=== PATIENT | male | born 1940 | race Caucasian/White ===

== ENCOUNTER 2016-08-07 21:46 | Emergency (ER) | payer OTHER, MEDICARE ==
[~2016-08-07] VITALS: Ht 162.6 cm; Wt 88.5 kg
[~2016-08-07 21:46] MED LIST: AMLO10TA88 PO; DOCU-144 PO; DOXA4TAB2 PO; HYDR-4100 PO; NOR10 PO; OMEG300C3 PO; VIT-10 PO
[2016-08-07 22:01] VITALS: BP_SYST 148
[2016-08-07] MEDS ORDERED: LORA10TA7 PO (23:00)
[2016-08-07] MEDS ORDERED: DOXA4TAB2 PO (23:00)
[2016-08-07] MEDS ORDERED: ASPI-1063 PO (23:00)
[2016-08-07] MEDS ORDERED: BENA10TA2 PO (23:00)
[2016-08-07] MEDS ORDERED: NACL 0.9% 1,000 ML IV ONE (23:08)
[2016-08-07 23:25] LABS: BASOPHILS % (AUTO) 0.5 % (0.0-2.0); EOSINOPHILS # (AUTO) 0.3 K/uL (0.0-0.4); EOSINOPHILS % (AUTO) 3.4 % (0.0-4.0); HEMATOCRIT 36.8 % (36-54); HEMOGLOBIN 12.6 g/dL (14.0-18.0); LYMPHOCYTES # (AUTO) 2.8 K/uL (1.0-5.5); MEAN CORPUSCULAR HEMOGLOBIN 31 pg (27-31); MEAN CORPUSCULAR HGB CONC 34 % (32-36); MEAN CORPUSCULAR VOLUME 91 fL (79.0-98.0); MONOCYTES # (AUTO) 0.9 K/uL (0.0-1.0); MONOCYTES % (AUTO) 11.3 % (1.7-9.3); NEUTROPHILS # (AUTO) 3.6 K/uL (1.8-7.7); NEUTROPHILS % (AUTO) 47.8 % (40.0-70.0); PLATELET COUNT (AUTO) 181 K/uL (130-430); RED BLOOD CELL COUNT(AUTO) 4.03 MIL/uL (4.2-6.2); RED CELL DISTRIBUTION WIDTH 13.3 % (9.0-15.0); WHITE BLOOD COUNT (AUTO) 7.6 K/uL (4.8-10.8)
[2016-08-07 23:33] LABS: ANION GAP 3 (5-15); CHLORIDE 105 mmol/L (98-107); CREATININE 1.11 mg/dL (0.55-1.30); GLUCOSE 124 mg/dL (70-99); POTASSIUM 4.5 mmol/L (3.5-5.1); SODIUM SERUM 140 mmol/L (136-145); UREA NITROGEN, BLOOD 22 mg/dL (8-21)
[2016-08-07 23:37] LABS: ALANINE AMINOTRANSFERASE 32 U/L (12-78); ALBUMIN 3.6 g/dL (3.4-4.8); ASPARTATE AMINOTRANSFERASE 24 U/L (10-37); TOTAL BILIRUBIN 0.6 mg/dL (0.0-1.0); TOTAL PROTEIN, SERUM 7.2 g/dL (6.4-8.3)
[2016-08-08 00:39] LABS: BILIRUBIN,URINE NEGATIVE (NEGATIVE); BLOOD, URINE NEGATIVE (NEGATIVE); CLARITY/URINE CLEAR (CLEAR); COLOR,URINE YELLOW (YELLOW); GLUCOSE,URINE NEGATIVE (NEGATIVE); KETONES,URINE NEGATIVE (NEGATIVE); LEUKOCYTE ESTERASE ,URINE NEGATIVE (NEGATIVE); NITRITE, URINE NEGATIVE (NEGATIVE); PROTEIN URINE 1+ (NEGATIVE); UROBILINOGEN,URINE 0.2 (0.2-1.0)
[2016-08-08 00:44] LABS: BACTERIA,URINE RARE /HPF (None Seen); MUCUS,URINE None Seen /LPF (None Seen); RBC,URINE NONE SEEN /HPF (0-3); WBC,URINE 0-3 /HPF (0-3)
[2016-08-08 00:45] VITALS: BP_SYST 148
== END 2016-08-08 00:45 | disposition home or self-care (01) ==
LOC: SED 21:46
DX: R10.30 Lower abdominal pain, unspecified (principal); J44.9 Chronic obstructive pulmonary disease, unspecified; Z86.73 Personal history of transient ischemic attack (TIA), and cerebral infarction without residual deficits; I10 Essential (primary) hypertension
CPT/HCPCS: 36415; 74176; 80053; 81000; 85025; 96360; 99285; J7030

== ENCOUNTER 2017-03-18 22:53 | Emergency (ER) | payer OTHER, MEDICARE ==
[~2017-03-18] VITALS: Ht 162.6 cm; Wt 86.2 kg
[~2017-03-18 22:53] MED LIST changes: +ASPI-1063 PO; +BENA10TA2 PO; +LORA10TA7 PO
[2017-03-18 23:01] VITALS: BP_SYST 148
[2017-03-18] MEDS ORDERED: KETOROLAC TROMETHAMINE 60 MG/2 ML VIAL IM ONE (23:45)
[2017-03-19 02:07] VITALS: BP_SYST 145
== END 2017-03-19 02:07 | disposition home or self-care (01) ==
LOC: SED 22:53
DX: R10.9 Unspecified abdominal pain (principal); I10 Essential (primary) hypertension; J44.9 Chronic obstructive pulmonary disease, unspecified; Z86.73 Personal history of transient ischemic attack (TIA), and cerebral infarction without residual deficits; Z79.82 Long term (current) use of aspirin; Z79.899 Other long term (current) drug therapy
CPT/HCPCS: 74176; 96372; 99284; J1885

== ENCOUNTER 2018-05-26 14:05 | Emergency (ER) | payer OTHER, MEDICARE ==
[~2018-05-26] VITALS: Ht 162.6 cm; Wt 83.9 kg
[2018-05-26 14:05] VITALS: BP_SYST 152
[~2018-05-26 14:05] MED LIST changes: -ASPI-1063 PO; +ASPI-1153 PO; -BENA10TA2 PO; +BENA10TA9 PO
[2018-05-26] MEDS ORDERED: cefTRIAXone 1 GM IVPB PREMIX 50 ML IV ONE (15:00)
[2018-05-26 16:05] LABS: ANION GAP 4 (5-15); CALCIUM 8.9 mg/dL (8.4-11.0); CHLORIDE 98 mmol/L (98-107); CREATININE 1.03 mg/dL (0.55-1.30); GLUCOSE 87 mg/dL (70-99); POTASSIUM 4.2 mmol/L (3.5-5.1); SODIUM SERUM 132 mmol/L (136-145); UREA NITROGEN, BLOOD 18 mg/dL (8-21)
[2018-05-26 16:07] LABS: HEMOGLOBIN 12.3 g/dL (14.0-18.0); MEAN CORPUSCULAR HEMOGLOBIN 30 pg (27-31); MEAN CORPUSCULAR HGB CONC 33 % (32-36); MEAN CORPUSCULAR VOLUME 91 fL (79.0-98.0); RED BLOOD CELL COUNT(AUTO) 4.07 MIL/uL (4.2-6.2); RED CELL DISTRIBUTION WIDTH 13.9 % (9.0-15.0)
[2018-05-26 16:08] LABS: BASOPHILS % (AUTO) 0.6 % (0.0-2.0); EOSINOPHILS # (AUTO) 0.2 K/uL (0.0-0.4); EOSINOPHILS % (AUTO) 2.6 % (0.0-4.0); LYMPHOCYTES # (AUTO) 1.9 K/uL (1.0-5.5); LYMPHOCYTES % (AUTO) 23.4 % (20.5-51.5); MONOCYTES # (AUTO) 0.9 K/uL (0.0-1.0); MONOCYTES % (AUTO) 11.7 % (1.7-9.3); NEUTROPHILS % (AUTO) 61.7 % (40.0-70.0); PLATELET COUNT (AUTO) 208 K/uL (130-430)
[2018-05-26 16:10] LABS: ALANINE AMINOTRANSFERASE 22 U/L (12-78); ALBUMIN 3.4 g/dL (3.4-4.8); ASPARTATE AMINOTRANSFERASE 18 U/L (10-37); TOTAL BILIRUBIN 0.8 mg/dL (0.0-1.0)
[2018-05-26] MEDS ORDERED: AZITHROMYCIN 250 MG TABLET PO ONE (16:15)
[2018-05-26 16:45] VITALS: BP_SYST 148
== END 2018-05-26 16:45 | disposition home or self-care (01) ==
LOC: SED 14:05
DX: J44.1 Chronic obstructive pulmonary disease with (acute) exacerbation (principal); J18.9 Pneumonia, unspecified organism; I10 Essential (primary) hypertension; Z86.73 Personal history of transient ischemic attack (TIA), and cerebral infarction without residual deficits; Z79.82 Long term (current) use of aspirin; Z79.899 Other long term (current) drug therapy
CPT/HCPCS: 36415; 71046; 71250; 80053; 85025; 87040; 96365; 99284; J0696; Q0144

== ENCOUNTER 2019-02-09 11:36 | Inpatient (IN) | payer OTHER, MEDICARE ==
[~2019-02-09] VITALS: Ht 162.6 cm; Wt 84.8 kg
[~2019-02-09 11:36] MED LIST changes: +BENA10TA11 PO; -BENA10TA9 PO
[2019-02-09 11:44] VITALS: BP_SYST 147
[2019-02-09] MEDS ORDERED: IPRATROPIUM/ALBUTEROL SULFATE 3 ML AMPUL.NEB (DUONEB) INH ONE (12:15)
[2019-02-09 12:28] LABS: BASOPHILS % (AUTO) 0.4 % (0.0-2.0); EOSINOPHILS # (AUTO) 0.3 K/uL (0.0-0.4); EOSINOPHILS % (AUTO) 2.8 % (0.0-4.0); HEMATOCRIT 33.8 % (36-54); HEMOGLOBIN 11.3 g/dL (14.0-18.0); LYMPHOCYTES # (AUTO) 1.1 K/uL (1.0-5.5); MEAN CORPUSCULAR HEMOGLOBIN 31 pg (27-31); MEAN CORPUSCULAR HGB CONC 34 % (32-36); MEAN CORPUSCULAR VOLUME 94 fL (79.0-98.0); MONOCYTES # (AUTO) 1.5 K/uL (0.0-1.0); MONOCYTES % (AUTO) 13.7 % (1.7-9.3); NEUTROPHILS # (AUTO) 8.1 K/uL (1.8-7.7); NEUTROPHILS % (AUTO) 73.1 % (40.0-70.0); PLATELET COUNT (AUTO) 227 K/uL (130-430)
[2019-02-09 12:40] LABS: ANION GAP 7 (5-15); CALCIUM 8.8 mg/dL (8.4-11.0); CHLORIDE 103 mmol/L (98-107); CREATININE 1.41 mg/dL (0.55-1.30); GLUCOSE 156 mg/dL (70-99); POTASSIUM 4.2 mmol/L (3.5-5.1); SODIUM SERUM 138 mmol/L (136-145); UREA NITROGEN, BLOOD 25 mg/dL (8-21)
[2019-02-09 12:56] LABS: ALANINE AMINOTRANSFERASE 48 U/L (12-78); ALBUMIN 2.8 g/dL (3.4-4.8); ASPARTATE AMINOTRANSFERASE 41 U/L (10-37); TOTAL BILIRUBIN 0.9 mg/dL (0.0-1.0)
[2019-02-09] MEDS ORDERED: cefTRIAXone 1 GM IVPB PREMIX 50 ML IV ONE (13:15)
[2019-02-09] MEDS ORDERED: ALBUTEROL SULFATE 0.083% 2.5 MG/3 ML VIAL.NEB INH PRN (14:00)
[2019-02-09] MEDS ORDERED: IPRATROPIUM BROM 0.5 MG/2.5 ML VIAL.NEB (ATROVENT) INH PRN (14:00)
[2019-02-09 14:55] VITALS: BP_SYST 140
[2019-02-09] MEDS: AZITHROMYCIN 500 MG in NS 250 ML IV SCH (16:03)
[2019-02-09 16:49] VITALS: BP_SYST 142
[2019-02-09] MEDS ORDERED: ACETAMINOPHEN 325 MG TABLET PO PRN (17:15)
[2019-02-09] MEDS: PREDNISONE 20 MG TABLET PO SCH (18:43)
[2019-02-09] MEDS: IPRATROPIUM BROM 0.5 MG/2.5 ML VIAL.NEB (ATROVENT) INH SCH (19:44)
[2019-02-09] MEDS: ALBUTEROL SULFATE 0.083% 2.5 MG/3 ML VIAL.NEB INH SCH (19:45)
[2019-02-09 20:00] VITALS: BP_SYST 136
[2019-02-09] MEDS ORDERED: DOXAZOSIN MESYLATE 2 MG TABLET PO SCH ×2 (21:00)
[2019-02-09] MEDS: HEPARIN SODIUM,PORCINE 5000 UNITS/ML VIAL SUBCUT SCH (21:17)
[2019-02-09 23:34] VITALS: BP_SYST 124
[2019-02-10] MEDS: ALBUTEROL SULFATE 0.083% 2.5 MG/3 ML VIAL.NEB INH SCH ×4 (01:45→20:14)
[2019-02-10] MEDS: IPRATROPIUM BROM 0.5 MG/2.5 ML VIAL.NEB (ATROVENT) INH SCH ×4 (01:50→20:14)
[2019-02-10 06:38] LABS: BASOPHILS % (AUTO) 0.3 % (0.0-2.0); HEMATOCRIT 31.5 % (36-54); HEMOGLOBIN 10.5 g/dL (14.0-18.0); LYMPHOCYTES % (AUTO) 9.1 % (20.5-51.5); MEAN CORPUSCULAR HEMOGLOBIN 31 pg (27-31); MEAN CORPUSCULAR HGB CONC 33 % (32-36); MEAN CORPUSCULAR VOLUME 93 fL (79.0-98.0); MONOCYTES # (AUTO) 0.9 K/uL (0.0-1.0); MONOCYTES % (AUTO) 7.6 % (1.7-9.3); NEUTROPHILS # (AUTO) 9.3 K/uL (1.8-7.7); PLATELET COUNT (AUTO) 231 K/uL (130-430); RED BLOOD CELL COUNT(AUTO) 3.39 MIL/uL (4.2-6.2); RED CELL DISTRIBUTION WIDTH 14.1 % (9.0-15.0); WHITE BLOOD COUNT (AUTO) 11.2 K/uL (4.8-10.8)
[2019-02-10 06:52] LABS: ANION GAP 6 (5-15); CALCIUM 8.5 mg/dL (8.4-11.0); CHLORIDE 103 mmol/L (98-107); CREATININE 1.31 mg/dL (0.55-1.30); GLUCOSE 155 mg/dL (70-99); SODIUM SERUM 134 mmol/L (136-145); UREA NITROGEN, BLOOD 26 mg/dL (8-21)
[2019-02-10 08:02] VITALS: BP_SYST 127
[2019-02-10] MEDS: PREDNISONE 20 MG TABLET PO SCH ×2 (08:29→17:23)
[2019-02-10] MEDS: cefTRIAXone 1 GM in D5W 50 ML IV SCH (08:29)
[2019-02-10] MEDS: DOXAZOSIN MESYLATE 2 MG TABLET PO SCH (08:29)
[2019-02-10] MEDS: amLODIPine BESYLATE 10 MG TABLET PO SCH (08:30)
[2019-02-10] MEDS: BENAZEPRIL HCL 10 MG TABLET (LOTENSIN) PO SCH (08:30)
[2019-02-10] MEDS: ASPIRIN 81 MG TABLET(ECOTRIN) PO SCH (08:30)
[2019-02-10] MEDS: HEPARIN SODIUM,PORCINE 5000 UNITS/ML VIAL SUBCUT SCH ×2 (08:32→21:55)
[2019-02-10] MEDS ORDERED: amLODIPine BESYLATE 10 MG TABLET PO SCH (09:00)
[2019-02-10] MEDS: AZITHROMYCIN 500 MG in NS 250 ML IV SCH (09:25)
[2019-02-10 12:20] VITALS: BP_SYST 126
[2019-02-10 16:02] VITALS: BP_SYST 106
[2019-02-10 20:00] VITALS: BP_SYST 136
[2019-02-10 23:35] VITALS: BP_SYST 132
[2019-02-11] MEDS: IPRATROPIUM BROM 0.5 MG/2.5 ML VIAL.NEB (ATROVENT) INH SCH ×4 (01:26→19:42)
[2019-02-11] MEDS: ALBUTEROL SULFATE 0.083% 2.5 MG/3 ML VIAL.NEB INH SCH ×4 (01:26→19:42)
[2019-02-11 06:52] LABS: BASOPHILS % (AUTO) 0.1 % (0.0-2.0); HEMATOCRIT 30.5 % (36-54); HEMOGLOBIN 10.1 g/dL (14.0-18.0); LYMPHOCYTES # (AUTO) 1.5 K/uL (1.0-5.5); LYMPHOCYTES % (AUTO) 10.5 % (20.5-51.5); MEAN CORPUSCULAR HEMOGLOBIN 31 pg (27-31); MEAN CORPUSCULAR HGB CONC 33 % (32-36); MEAN CORPUSCULAR VOLUME 94 fL (79.0-98.0); MONOCYTES % (AUTO) 7.1 % (1.7-9.3); NEUTROPHILS # (AUTO) 11.8 K/uL (1.8-7.7); NEUTROPHILS % (AUTO) 82.3 % (40.0-70.0); PLATELET COUNT (AUTO) 270 K/uL (130-430); RED BLOOD CELL COUNT(AUTO) 3.25 MIL/uL (4.2-6.2); RED CELL DISTRIBUTION WIDTH 14.3 % (9.0-15.0); WHITE BLOOD COUNT (AUTO) 14.4 K/uL (4.8-10.8)
[2019-02-11 08:00] VITALS: BP_SYST 135
[2019-02-11] MEDS: cefTRIAXone 1 GM in D5W 50 ML IV SCH (08:20)
[2019-02-11] MEDS: DOXAZOSIN MESYLATE 2 MG TABLET PO SCH (08:20)
[2019-02-11] MEDS: PREDNISONE 20 MG TABLET PO SCH ×2 (08:20→17:43)
[2019-02-11] MEDS: ASPIRIN 81 MG TABLET(ECOTRIN) PO SCH (08:21)
[2019-02-11] MEDS: amLODIPine BESYLATE 10 MG TABLET PO SCH (08:21)
[2019-02-11] MEDS: BENAZEPRIL HCL 10 MG TABLET (LOTENSIN) PO SCH (08:21)
[2019-02-11] MEDS: HEPARIN SODIUM,PORCINE 5000 UNITS/ML VIAL SUBCUT SCH ×2 (08:29→21:17)
[2019-02-11] MEDS: AZITHROMYCIN 500 MG in NS 250 ML IV SCH (09:34)
[2019-02-11 12:43] VITALS: BP_SYST 135
[2019-02-11] MEDS ORDERED: FUROSEMIDE 20 MG/2 ML VIAL IVP ONE (14:00)
[2019-02-11 16:46] VITALS: BP_SYST 151
[2019-02-11 19:46] VITALS: BP_SYST 133
[2019-02-12] VITALS: BP_SYST 142
[2019-02-12] MEDS: ALBUTEROL SULFATE 0.083% 2.5 MG/3 ML VIAL.NEB INH SCH ×4 (00:08→19:41)
[2019-02-12] MEDS: IPRATROPIUM BROM 0.5 MG/2.5 ML VIAL.NEB (ATROVENT) INH SCH ×4 (00:08→19:41)
[2019-02-12 07:51] VITALS: BP_SYST 146
[2019-02-12 08:01] LABS: BASOPHILS # (AUTO) 0.1 K/uL (0.0-0.2); BASOPHILS % (AUTO) 0.4 % (0.0-2.0); EOSINOPHILS # (AUTO) 0.1 K/uL (0.0-0.4); EOSINOPHILS % (AUTO) 0.4 % (0.0-4.0); HEMATOCRIT 36.3 % (36-54); HEMOGLOBIN 12.1 g/dL (14.0-18.0); LYMPHOCYTES # (AUTO) 2.3 K/uL (1.0-5.5); LYMPHOCYTES % (AUTO) 15.9 % (20.5-51.5); MEAN CORPUSCULAR HEMOGLOBIN 31 pg (27-31); MEAN CORPUSCULAR HGB CONC 34 % (32-36); MEAN CORPUSCULAR VOLUME 94 fL (79.0-98.0); MONOCYTES # (AUTO) 1.1 K/uL (0.0-1.0); MONOCYTES % (AUTO) 7.5 % (1.7-9.3); NEUTROPHILS % (AUTO) 75.8 % (40.0-70.0); PLATELET COUNT (AUTO) 349 K/uL (130-430); RED BLOOD CELL COUNT(AUTO) 3.88 MIL/uL (4.2-6.2); RED CELL DISTRIBUTION WIDTH 14.5 % (9.0-15.0); WHITE BLOOD COUNT (AUTO) 14.5 K/uL (4.8-10.8)
[2019-02-12 08:13] LABS: ANION GAP 10 (5-15); CALCIUM 9.9 mg/dL (8.4-11.0); CHLORIDE 101 mmol/L (98-107); CREATININE 1.14 mg/dL (0.55-1.30); GLUCOSE 122 mg/dL (70-99); POTASSIUM 5.3 mmol/L (3.5-5.1); SODIUM SERUM 138 mmol/L (136-145); UREA NITROGEN, BLOOD 31 mg/dL (8-21)
[2019-02-12] MEDS: cefTRIAXone 1 GM in D5W 50 ML IV SCH (08:45)
[2019-02-12] MEDS: PREDNISONE 20 MG TABLET PO SCH ×2 (08:45→17:57)
[2019-02-12] MEDS: ASPIRIN 81 MG TABLET(ECOTRIN) PO SCH (08:46)
[2019-02-12] MEDS: DOXAZOSIN MESYLATE 2 MG TABLET PO SCH (08:46)
[2019-02-12] MEDS: BENAZEPRIL HCL 10 MG TABLET (LOTENSIN) PO SCH (08:46)
[2019-02-12] MEDS: amLODIPine BESYLATE 10 MG TABLET PO SCH (08:47)
[2019-02-12] MEDS: HEPARIN SODIUM,PORCINE 5000 UNITS/ML VIAL SUBCUT SCH ×2 (08:49→21:49)
[2019-02-12] MEDS: AZITHROMYCIN 500 MG in NS 250 ML IV SCH (09:57)
[2019-02-12 11:20] VITALS: BP_SYST 120
[2019-02-12] MEDS ORDERED: FUROSEMIDE 20 MG/2 ML VIAL IVP ONE (11:30)
[2019-02-12 15:14] VITALS: BP_SYST 133
[2019-02-12 16:24] VITALS: BP_SYST 133
[2019-02-12] MEDS ORDERED: SODIUM POLYSTYRENE SULFONATE 15 GM/60 ML UDBTL PO ONE (17:00)
[2019-02-12 20:00] VITALS: BP_SYST 147
[2019-02-13] VITALS: BP_SYST 140
[2019-02-13] MEDS: ALBUTEROL SULFATE 0.083% 2.5 MG/3 ML VIAL.NEB INH SCH ×4 (01:00→19:49)
[2019-02-13] MEDS: IPRATROPIUM BROM 0.5 MG/2.5 ML VIAL.NEB (ATROVENT) INH SCH ×4 (01:00→19:49)
[2019-02-13 07:55] VITALS: BP_SYST 137
[2019-02-13 08:19] LABS: ANION GAP 11 (5-15); CALCIUM 9.8 mg/dL (8.4-11.0); CHLORIDE 99 mmol/L (98-107); CREATININE 1.06 mg/dL (0.55-1.30); GLUCOSE 110 mg/dL (70-99); POTASSIUM 5.1 mmol/L (3.5-5.1); SODIUM SERUM 134 mmol/L (136-145); UREA NITROGEN, BLOOD 30 mg/dL (8-21)
[2019-02-13] MEDS ORDERED: MUPIROCIN 1 GM OIN.PF.APP NS SCH (09:00)
[2019-02-13] MEDS: cefTRIAXone 1 GM in D5W 50 ML IV SCH (09:40)
[2019-02-13] MEDS: amLODIPine BESYLATE 10 MG TABLET PO SCH (09:41)
[2019-02-13] MEDS: ASPIRIN 81 MG TABLET(ECOTRIN) PO SCH (09:41)
[2019-02-13] MEDS: BENAZEPRIL HCL 10 MG TABLET (LOTENSIN) PO SCH (09:42)
[2019-02-13] MEDS: AZITHROMYCIN 500 MG in NS 250 ML IV SCH (09:43)
[2019-02-13] MEDS: DOXAZOSIN MESYLATE 2 MG TABLET PO SCH (09:43)
[2019-02-13] MEDS: HEPARIN SODIUM,PORCINE 5000 UNITS/ML VIAL SUBCUT SCH ×2 (09:44→21:33)
[2019-02-13] MEDS: PREDNISONE 20 MG TABLET PO SCH ×2 (09:45→17:26)
[2019-02-13 11:35] VITALS: BP_SYST 137
[2019-02-13] MEDS ORDERED: FUROSEMIDE 20 MG TABLET PO ONE (12:45)
[2019-02-13 15:19] VITALS: BP_SYST 147
[2019-02-13 20:00] VITALS: BP_SYST 136
[2019-02-14] VITALS: BP_SYST 141
[2019-02-14] MEDS: ALBUTEROL SULFATE 0.083% 2.5 MG/3 ML VIAL.NEB INH SCH ×4 (01:00→20:10)
[2019-02-14] MEDS: IPRATROPIUM BROM 0.5 MG/2.5 ML VIAL.NEB (ATROVENT) INH SCH ×4 (01:00→20:10)
[2019-02-14 08:00] VITALS: BP_SYST 148
[2019-02-14] MEDS: cefTRIAXone 1 GM in D5W 50 ML IV SCH (08:34)
[2019-02-14] MEDS: amLODIPine BESYLATE 10 MG TABLET PO SCH (08:37)
[2019-02-14] MEDS: BENAZEPRIL HCL 10 MG TABLET (LOTENSIN) PO SCH (08:37)
[2019-02-14] MEDS: PREDNISONE 20 MG TABLET PO SCH (08:37)
[2019-02-14] MEDS: ASPIRIN 81 MG TABLET(ECOTRIN) PO SCH (08:38)
[2019-02-14] MEDS: DOXAZOSIN MESYLATE 2 MG TABLET PO SCH (08:38)
[2019-02-14] MEDS: HEPARIN SODIUM,PORCINE 5000 UNITS/ML VIAL SUBCUT SCH (08:40)
[2019-02-14] MEDS ORDERED: FUROSEMIDE 20 MG TABLET PO SCH (09:00)
[2019-02-14 09:53] LABS: BASOPHILS # (AUTO) 0.1 K/uL (0.0-0.2); EOSINOPHILS % (AUTO) 0.1 % (0.0-4.0); HEMATOCRIT 36.4 % (36-54); HEMOGLOBIN 12.1 g/dL (14.0-18.0); LYMPHOCYTES # (AUTO) 3.4 K/uL (1.0-5.5); LYMPHOCYTES % (AUTO) 24.2 % (20.5-51.5); MEAN CORPUSCULAR HEMOGLOBIN 31 pg (27-31); MEAN CORPUSCULAR HGB CONC 33 % (32-36); MEAN CORPUSCULAR VOLUME 93 fL (79.0-98.0); MONOCYTES # (AUTO) 0.9 K/uL (0.0-1.0); MONOCYTES % (AUTO) 6.1 % (1.7-9.3); NEUTROPHILS # (AUTO) 9.6 K/uL (1.8-7.7); NEUTROPHILS % (AUTO) 68.6 % (40.0-70.0); PLATELET COUNT (AUTO) 396 K/uL (130-430); RED BLOOD CELL COUNT(AUTO) 3.91 MIL/uL (4.2-6.2); RED CELL DISTRIBUTION WIDTH 14.6 % (9.0-15.0)
[2019-02-14 10:00] LABS: ANION GAP 10 (5-15); CALCIUM 8.7 mg/dL (8.4-11.0); CHLORIDE 101 mmol/L (98-107); CREATININE 1.35 mg/dL (0.55-1.30); GLUCOSE 261 mg/dL (70-99); POTASSIUM 4.3 mmol/L (3.5-5.1); SODIUM SERUM 136 mmol/L (136-145); UREA NITROGEN, BLOOD 34 mg/dL (8-21)
[2019-02-14 12:00] VITALS: BP_SYST 146
[2019-02-14] MEDS: AZITHROMYCIN 500 MG in NS 250 ML IV SCH (12:21)
[2019-02-14 16:00] VITALS: BP_SYST 142
[2019-02-14] MEDS ORDERED: PREDNISONE 10 MG TABLET PO SCH (18:00)
[2019-02-14 20:04] VITALS: BP_SYST 139
== END 2019-02-14 22:20 | DRG 682 ==
LOC: SED 11:36 → STU 13:13
PROVIDERS: ADMIT Internal Medicine Hospice and Palliative Medicine; ATTEND Internal Medicine Hospice and Palliative Medicine
DX: N17.0 Acute kidney failure with tubular necrosis (principal); J18.1 Lobar pneumonia, unspecified organism; J44.0 Chronic obstructive pulmonary disease with (acute) lower respiratory infection; J44.1 Chronic obstructive pulmonary disease with (acute) exacerbation; I10 Essential (primary) hypertension; I73.9 Peripheral vascular disease, unspecified; E66.9 Obesity, unspecified; N28.9 Disorder of kidney and ureter, unspecified; I27.81 Cor pulmonale (chronic); G89.29 Other chronic pain; W18.39XA Other fall on same level, initial encounter; D64.9 Anemia, unspecified; N40.0 Benign prostatic hyperplasia without lower urinary tract symptoms; Z86.73 Personal history of transient ischemic attack (TIA), and cerebral infarction without residual deficits; Z87.891 Personal history of nicotine dependence; Z79.82 Long term (current) use of aspirin; Z79.899 Other long term (current) drug therapy; Y93.89 Activity, other specified; Y92.89 Other specified places as the place of occurrence of the external cause; Y99.8 Other external cause status; Z68.32 Body mass index [BMI] 32.0-32.9, adult
CPT/HCPCS: 36415; 36600; 71045; 71250-TC; 80048; 80053; 82550-TC; 82803-TC; 83880; 84484; 85025; 93005; 93306; 94640; 94760; 96365; 97112-GP; 99285; G0378; J0456; J0696; J1644; J1940; J7050; J7060; J7512; J7613; J7620

== ENCOUNTER 2019-11-18 19:09 | Emergency (ER) | payer MEDICARE, OTHER ==
[~2019-11-18] VITALS: Ht 162.6 cm; Wt 88.5 kg
[~2019-11-18 19:09] MED LIST changes: -ASPI-1153 PO; +ASPI-1393 PO; -BENA10TA11 PO; +BENA10TA73 PO; -DOCU-144 PO; -HYDR-4100 PO; -LORA10TA7 PO; -OMEG300C3 PO; -VIT-10 PO
[2019-11-18 19:15] VITALS: BP_SYST 153
[2019-11-18 20:30] VITALS: BP_SYST 153
== END 2019-11-18 20:30 | disposition home or self-care (01) ==
LOC: SED 19:09
DX: L03.116 Cellulitis of left lower limb (principal); I77.6 Arteritis, unspecified; J44.9 Chronic obstructive pulmonary disease, unspecified; I10 Essential (primary) hypertension; Z86.73 Personal history of transient ischemic attack (TIA), and cerebral infarction without residual deficits; Z79.899 Other long term (current) drug therapy; Z79.82 Long term (current) use of aspirin
CPT/HCPCS: 82962; 99283

== ENCOUNTER 2019-11-21 20:11 | Emergency (ER) | payer OTHER ==
[~2019-11-21] VITALS: Ht 162.6 cm; Wt 89.8 kg
[2019-11-21 20:21] VITALS: BP_SYST 127
--- NOTE | 2019-11-21 20:30 | NUR ---
Patient to ER bed 8 to gown for evaluation. Side rails up.
--- NOTE | 2019-11-21 20:35 | NUR ---
ALINA MCKINLEY at bedside examining patient.
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
--- NOTE | 2019-11-21 20:42 | NUR ---
RESPIRATORY AT BEDSIDE.
[2019-11-21] MEDS ORDERED: IPRATROPIUM/ALBUTEROL SULFATE 3 ML AMPUL.NEB (DUONEB) INH ONE (20:45)
[2019-11-21] MEDS ORDERED: methylPREDNISolone SOD SUCC/PF 62.5 MG/ML VIAL IM ONE (20:45)
--- NOTE | 2019-11-21 21:03 | NUR ---
PT MEDICATED PER MD ORDER. PT TOLERATED WELL.
--- NOTE | 2019-11-21 21:04 | NUR ---
XRAY AT BEDSIDE.
[2019-11-21 21:30] VITALS: BP_SYST 147
--- NOTE | 2019-11-21 21:30 | NUR ---
Patient given written and verbal discharge instructions and verbalizes understanding. ER MD discussed with patient the results and treatment provided. Patient in stable condition. ID arm band removed. Rx of PREDNISONE given. Patient educated on pain management and to follow up with PMD. Pain Scale 0/10. Opportunity for questions provided and answered. Medication side effect fact sheet provided.
== END 2019-11-21 21:30 | disposition home or self-care (01) ==
LOC: SED 20:11
DX: J44.9 Chronic obstructive pulmonary disease, unspecified (principal); I10 Essential (primary) hypertension; Z86.73 Personal history of transient ischemic attack (TIA), and cerebral infarction without residual deficits; Z79.899 Other long term (current) drug therapy; Z79.82 Long term (current) use of aspirin
CPT/HCPCS: 71045; 94640; 96372; 99283; J2930

== ENCOUNTER 2019-12-08 19:25 | Emergency (ER) | payer OTHER ==
[~2019-12-08] VITALS: Ht 162.6 cm; Wt 89.8 kg
[2019-12-08 19:33] VITALS: BP_SYST 144
--- NOTE | 2019-12-08 19:33 | NUR ---
Patient to ER bed 1 to gown for evaluation. Side rails up.
--- NOTE | 2019-12-08 19:45 | NUR ---
Patient brought in ambulatory for right lower leg cellulitis worsening x 2 weeks. Pain 6/10. No other complaints/injuries per patient or as noted. will continue to monitor.
--- NOTE | 2019-12-08 19:54 | NUR ---
ER at bedside examining patient.
[2019-12-08] MEDS ORDERED: VANCOMYCIN HCL 1,000 MG in NS 250 ML IV ONE (20:00)
[2019-12-08] MEDS ORDERED: KETOROLAC TROMETHAMINE 30 MG VIAL IVP ONE (20:00)
--- NOTE | 2019-12-08 20:05 | NUR ---
# 22 gauge angiocath placed to racUse of asceptic technique. Opsite placed over site. Blood return noted. Blood and cultures for lab drawn from site. Flushed with 10 cc of normal saline. No evidence of infiltration noted. Patient tolerated well.
[2019-12-08 20:16] LABS: BASOPHILS # (AUTO) 0.1 K/uL (0.0-0.2); BASOPHILS % (AUTO) 0.6 % (0.0-2.0); EOSINOPHILS # (AUTO) 0.2 K/uL (0.0-0.4); EOSINOPHILS % (AUTO) 2.1 % (0.0-4.0); HEMATOCRIT 36.8 % (36-54); HEMOGLOBIN 12.1 g/dL (14.0-18.0); LYMPHOCYTES # (AUTO) 3.1 K/uL (1.0-5.5); LYMPHOCYTES % (AUTO) 29.2 % (20.5-51.5); MEAN CORPUSCULAR HEMOGLOBIN 31 pg (27-31); MEAN CORPUSCULAR HGB CONC 33 % (32-36); MEAN CORPUSCULAR VOLUME 93 fL (79.0-98.0); MONOCYTES # (AUTO) 0.9 K/uL (0.0-1.0); MONOCYTES % (AUTO) 8.8 % (1.7-9.3); NEUTROPHILS # (AUTO) 6.2 K/uL (1.8-7.7); NEUTROPHILS % (AUTO) 59.3 % (40.0-70.0); PLATELET COUNT (AUTO) 201 K/uL (130-430); RED BLOOD CELL COUNT(AUTO) 3.98 MIL/uL (4.2-6.2); RED CELL DISTRIBUTION WIDTH 14.8 % (9.0-15.0); WHITE BLOOD COUNT (AUTO) 10.5 K/uL (4.8-10.8)
[2019-12-08] MEDS ORDERED: VANCOMYCIN HCL 1000 MG/VIAL IV ONE (20:29)
[2019-12-08 21:17] LABS: ANION GAP 6 (5-15); CHLORIDE 104 mmol/L (98-107); SODIUM SERUM 141 mmol/L (136-145)
[2019-12-08 21:18] LABS: ALANINE AMINOTRANSFERASE 50 U/L (12-78); ALBUMIN 3.4 g/dL (3.4-4.8); ASPARTATE AMINOTRANSFERASE 21 U/L (10-37); CALCIUM 8.3 mg/dL (8.4-11.0); GLUCOSE 151 mg/dL (70-99); TOTAL BILIRUBIN 0.3 mg/dL (0.0-1.0); UREA NITROGEN, BLOOD 26 mg/dL (8-21)
[2019-12-08 22:25] VITALS: BP_SYST 128
--- NOTE | 2019-12-08 22:25 | NUR ---
Patient given written and verbal discharge instructions and verbalizes understanding. ER MD discussed with patient the results and treatment provided. Patient in stable condition. ID arm band removed. IV catheter removed intact and dressing applied, no active bleeding. Rx of Tylenol, Mupirocin, Bactrim given. Patient educated on pain management and to follow up with PMD. Pain Scale 0/10 Opportunity for questions provided and answered. Medication side effect fact sheet provided.
== END 2019-12-08 22:25 | disposition home or self-care (01) ==
LOC: SED 19:25
DX: L03.116 Cellulitis of left lower limb (principal); I77.6 Arteritis, unspecified; I73.9 Peripheral vascular disease, unspecified; J44.9 Chronic obstructive pulmonary disease, unspecified; I10 Essential (primary) hypertension; Z79.899 Other long term (current) drug therapy; Z79.82 Long term (current) use of aspirin
CPT/HCPCS: 36415; 73590; 80053; 85025; 87040; 96374; 96375; 99284; J1885; J3370

== ENCOUNTER 2020-03-10 21:42 | Emergency (ER) | payer OTHER, SELFPAY ==
[~2020-03-10] VITALS: Ht 162.6 cm; Wt 90.7 kg
[2020-03-10 21:46] VITALS: BP_SYST 159
--- NOTE | 2020-03-10 21:46 | NUR ---
Patient triaged and placed in the tent. VSS and patient appears in no acute distress at this time. Accompanied by daugther, awaiting available bed, and MD notified of need for MSE.
--- NOTE | 2020-03-10 22:46 | NUR ---
ER Dr. ROPER at bedside examining patient.
[2020-03-10] MEDS ORDERED: cefTRIAXone 1 GM in LIDOCAINE 1%, 20 ML MDV 2.1 ML IM ONE (23:30)
[2020-03-10] MEDS ORDERED: KETOROLAC TROMETHAMINE 30 MG VIAL IM ONE (23:30)
[2020-03-11] MEDS ORDERED: LIDOCAINE 1%, 20 ML MDV 20 ML ONE (00:03)
[2020-03-11] MEDS ORDERED: cefTRIAXone 1 GM VIAL ONE (00:03)
--- NOTE | 2020-03-11 00:40 | NUR ---
Pt instructed to to come back for 2-3 more doses of IM Rocephin 1grm per Dr allison.Pt verbalized understanding.
--- NOTE | 2020-03-11 00:45 | NUR ---
Patient given written and verbal discharge instructions and verbalizes understanding. ER MD discussed with patient the results and treatment provided. Patient in stable condition. ID arm band removed. Rx of [place] 5mg-325ng and Levaquin 500mg given. Patient educated on pain management and to follow up with PMD. Pain Scale 2/10. Opportunity for questions provided and answered. Medication side effect fact sheet provided.
[2020-03-11 00:49] VITALS: BP_SYST 142
== END 2020-03-11 00:45 | disposition home or self-care (01) ==
LOC: SED 21:42
DX: L03.113 Cellulitis of right upper limb (principal); L03.114 Cellulitis of left upper limb; L03.116 Cellulitis of left lower limb; L03.115 Cellulitis of right lower limb; I10 Essential (primary) hypertension; J44.9 Chronic obstructive pulmonary disease, unspecified; Z79.82 Long term (current) use of aspirin; Z79.899 Other long term (current) drug therapy
CPT/HCPCS: 96372; 99284; J0696; J1885; J2001

== ENCOUNTER 2020-03-11 19:13 | Emergency (ER) | payer MEDICARE, OTHER, SELFPAY ==
[~2020-03-11] VITALS: Ht 162.6 cm; Wt 90.7 kg
[2020-03-11 19:27] VITALS: BP_SYST 160
--- NOTE | 2020-03-11 19:57 | NUR ---
Placed in tent .
--- NOTE | 2020-03-11 19:58 | NUR ---
ALINA Talbert examining patient.
--- NOTE | 2020-03-11 20:00 | NUR ---
Pt presents to ER for cellulitis x since april. Pt was recently seen ER for b/l UE cellulitis was told by the ER MD to return for IM rocephin. Denies allergies. Recent exposure to COVID.
[2020-03-11] MEDS ORDERED: DIPHENHYDRAMINE INJ 50 MG/ML VIAL IM ONE (20:45)
[2020-03-11] MEDS ORDERED: cefTRIAXone 1 GM in LIDOCAINE 1%, 20 ML MDV 2.1 ML IM ONE (20:45)
--- NOTE | 2020-03-11 21:16 | NUR ---
Patient given written and verbal discharge instructions and verbalizes understanding. ER MD discussed with patient the results and treatment provided. Patient in stable condition. ID arm band removed. Patient educated on pain management and to follow up with PMD. Opportunity for questions provided and answered. Medication side effect fact sheet provided.
== END 2020-03-11 21:16 | disposition home or self-care (01) ==
LOC: SED 19:13
DX: L03.114 Cellulitis of left upper limb (principal); L03.113 Cellulitis of right upper limb; L03.116 Cellulitis of left lower limb; L03.115 Cellulitis of right lower limb; I10 Essential (primary) hypertension; J44.9 Chronic obstructive pulmonary disease, unspecified; Z79.82 Long term (current) use of aspirin; Z79.899 Other long term (current) drug therapy
CPT/HCPCS: 96372; 99284; J0696; J1200; J2001

== ENCOUNTER 2020-03-12 18:33 | Emergency (ER) | payer MEDICARE, OTHER ==
[~2020-03-12] VITALS: Ht 162.6 cm; Wt 90.7 kg
[2020-03-12 18:57] VITALS: BP_SYST 172
[2020-03-12] MEDS ORDERED: cefTRIAXone 2 GM VIAL IM ONE (19:45)
[2020-03-12] MEDS ORDERED: DIPHENHYDRAMINE INJ 50 MG/ML VIAL IM ONE (20:00)
[2020-03-12 20:30] VITALS: BP_SYST 168
== END 2020-03-12 20:30 | disposition home or self-care (01) ==
LOC: SED 18:33
DX: L03.116 Cellulitis of left lower limb (principal); L03.115 Cellulitis of right lower limb; I10 Essential (primary) hypertension; J44.9 Chronic obstructive pulmonary disease, unspecified; Z79.899 Other long term (current) drug therapy; Z79.82 Long term (current) use of aspirin
CPT/HCPCS: 96372; 99284; J0696; J1200

== ENCOUNTER 2023-03-31 11:18 | Emergency (ER) | payer BC, OTHER ==
[~2023-03-31] VITALS: Ht 144.8 cm; Wt 95.7 kg
[~2023-03-31 11:18] MED LIST changes: +DOXA-8 PO; -DOXA4TAB2 PO
[2023-03-31 11:23] VITALS: BP_SYST 146; PULSE 83; RESP 24; TEMP 98.5; O2SAT 94
[2023-03-31] MEDS ORDERED: ASPIRIN 81 MG TAB.CHEW PO ONE (12:00)
[2023-03-31 12:04] LABS: BASOPHILS % (AUTO) 0.5 % (0.0-2.0); EOSINOPHILS # (AUTO) 0.2 K/uL (0.0-0.4); EOSINOPHILS % (AUTO) 2.7 % (0.0-4.0); HEMATOCRIT 30.2 % (36-54); LYMPHOCYTES # (AUTO) 1.6 K/uL (1.0-5.5); LYMPHOCYTES % (AUTO) 18.6 % (20.5-51.5); MEAN CORPUSCULAR HEMOGLOBIN 30 pg (27-31); MEAN CORPUSCULAR HGB CONC 33 % (32-36); MEAN CORPUSCULAR VOLUME 91 fL (79.0-98.0); MONOCYTES # (AUTO) 0.9 K/uL (0.0-1.0); MONOCYTES % (AUTO) 10.7 % (1.7-9.3); NEUTROPHILS # (AUTO) 5.7 K/uL (1.8-7.7); NEUTROPHILS % (AUTO) 67.5 % (40.0-70.0); PLATELET COUNT (AUTO) 188 K/uL (130-430); RED BLOOD CELL COUNT(AUTO) 3.31 MIL/uL (4.2-6.2); RED CELL DISTRIBUTION WIDTH 14.9 % (9.0-15.0); WHITE BLOOD COUNT (AUTO) 8.4 K/uL (4.8-10.8)
[2023-03-31 12:15] LABS: ANION GAP 8 (5-15); CALCIUM 8.2 mg/dL (8.4-11.0); CARBON DIOXIDE 24 mmol/L (23-29); CHLORIDE 103 mmol/L (98-107); CREATININE 2.01 mg/dL (0.55-1.30); GLUCOSE 151 mg/dL (74-106); POTASSIUM 4.2 mmol/L (3.5-5.1); SODIUM SERUM 135 mmol/L (136-145); UREA NITROGEN, BLOOD 45 mg/dL (8-21)
[2023-03-31] MEDS ORDERED: FURO-150 PO (13:18)
[2023-03-31] MEDS ORDERED: IPRATROPIUM/ALBUTEROL SULFATE 3 ML AMPUL.NEB (DUONEB) INH ONE (13:30)
[2023-03-31 14:11] VITALS: O2SAT 93
[2023-03-31 14:23] VITALS: BP_SYST 123; PULSE 71; RESP 18; TEMP 97.8; O2SAT 93
== END 2023-03-31 14:22 | disposition home or self-care (01) ==
LOC: SED 11:18
DX: J44.1 Chronic obstructive pulmonary disease with (acute) exacerbation (principal); I11.0 Hypertensive heart disease with heart failure; I50.9 Heart failure, unspecified; R06.02 Shortness of breath; R20.2 Paresthesia of skin; Z79.899 Other long term (current) drug therapy
CPT/HCPCS: 36415; 71045; 80048; 83880; 84484; 85025; 93005; 94664; 94760; 99285